=== PATIENT | female | born 1985 | race Hispanic/Latino ===

== ENCOUNTER 2017-10-06 17:23 | Emergency (ER) | payer OTHER ==
[~2017-10-06] VITALS: Ht 162.6 cm; Wt 113.0 kg
[~2017-10-06 17:23] MED LIST: AMOXICILLIN500 MG PO; BACTRIM DS1 TAB OR; DIFLUCAN150 MG OR; ERRIN0.35 MG PO; GLYBURIDE2.5 MG PO; GLYBURIDE5 MG PO; HUMULIN R1 M1 SC; KARIVA28 DAY; LISINOPRIL10 MG PO; LORTAB5 PO; METFORMIN500 M1 PO; METFORMIN500 MG PO; MIRCETTE28 DAY PO; NOVOLOG SC; NOVOLOG100 IU/1 M; NOVOLOG100 IU/1 M SC; PENICILLN VK500 MG PO; PRENATAL1 TA1 PO; TRAMADOL HCL50 MG PO; ULTRAM50 M1 PO; ZOFRAN ODT8 MG PO
[2017-10-06] MEDS ORDERED: MOTRIN800 MG PO (20:25)
[2017-10-06] MEDS ORDERED: FLEXERIL PO (20:25)
[2017-10-06] MEDS ORDERED: LEVEMIR FL100 UNIT/M SC (20:34)
[2017-10-06 20:44] VITALS: BP 148/89
== END 2017-10-06 20:44 | disposition home or self-care (01) | DRG 563 ==
LOC: ED 17:23
DX: S29.012A Strain of muscle and tendon of back wall of thorax, initial encounter (principal); V59.49XA Driver of pick-up truck or van injured in collision with other motor vehicles in traffic accident, initial encounter; Y92.414 Local residential or business street as the place of occurrence of the external cause

== ENCOUNTER 2018-02-05 19:03 | Emergency (ER) | payer OTHER ==
[~2018-02-05] VITALS: Ht 162.6 cm; Wt 111.4 kg
[~2018-02-05 19:03] MED LIST changes: +FLEXERIL PO; +LEVEMIR FL100 UNIT/M SC; +MOTRIN800 MG PO
[2018-02-05 20:05] LABS: IMMATURE GRANULOCYTES 1.2 % (0.0-1.0); MEAN CELL VOLUME 83.3 fL CALC (80.0-100.0); MEAN CORPUSCULAR HGB 26.4 pG CALC (26.0-32.0); MEAN CORPUSCULAR HGB CONC 31.6 g/L CALC (32.0-36.0); NEUT# 12.6 thou/uL (2.00-7.15); RED BLOOD COUNT 5.46 mill/uL (4.20-5.60); RED CELL DISTRI WIDTH 13.2 % (11.5-15.5)
[2018-02-05 20:09] LABS: HEMATOCRIT 45.5 % (37.0-47.0); HEMOGLOBIN 14.4 g/dl (12.0-16.0)
[2018-02-05 20:16] LABS: ALKALINE PHOSPHATASE 102 u/l (38-126); AMYLASE 31 u/l (30-110); ANION GAP 21 (6-22 (CALC)); BILIRUBIN, TOTAL 0.7 mg/dL (0.0-1.4); BUN 13 mg/dL (7-17); BUN/CREATININE RATIO 18 (12-20 (CALC)); CARBON DIOXIDE 26 mmol/l (22-30); CHLORIDE 95 mmol/l (95-108); CREATININE 0.7 mg/dL (0.5-1.0); GFR > 60 ML/MIN (>=60 (CALC)); GFR FOR AFR.AMER. > 60 ML/MIN (>=60 (CALC)); LIPASE 49 u/l (23-300); POTASSIUM 4.6 mmol/l (3.5-5.1); SGOT/AST 44 u/l (14-36); SGPT/ALT 31 u/l (9-52); SODIUM 137 mmol/l (137-146); TOTAL PROTEIN 7.7 g/dL (6.3-8.2)
[2018-02-06] MEDS ORDERED: CIPROFLOXACN500 MG PO (01:21)
[2018-02-06 01:27] VITALS: BP 118/67
== END 2018-02-06 01:41 | disposition home or self-care (01) | DRG 392 ==
LOC: ED 19:03
PROVIDERS: Emergency Medicine
DX: R11.10 Vomiting, unspecified (principal); E11.65 Type 2 diabetes mellitus with hyperglycemia; Z79.4 Long term (current) use of insulin; Z79.84 Long term (current) use of oral hypoglycemic drugs; R19.7 Diarrhea, unspecified; R50.9 Fever, unspecified

== ENCOUNTER 2018-06-10 23:43 | Observation (INO) | payer OTHER ==
[~2018-06-10] VITALS: Ht 162.6 cm; Wt 114.0 kg
[~2018-06-10 23:43] MED LIST changes: +CIPROFLOXACN500 MG PO
--- NOTE | 2018-06-11 00:01 | NUR ---
AMBULATED TO ROOM 8
[2018-06-11 00:53] LABS: URINE BILIRUBIN - DIPSTICK NEGATIVE (NEGATIVE); URINE BLOOD DIPSTICK NEGATIVE (NEGATIVE); URINE COLOR YELLOW; URINE GLUCOSE - DIPSTICK NEGATIVE (NEGATIVE); URINE KETONE 15 mg/dL (NEGATIVE); URINE LEUK ESTERASE NEGATIVE (NEGATIVE); URINE NITRITE - DIPSTICK NEGATIVE (Negative); URINE PROTEIN - DIPSTICK 30 mg/dL (NEG-TRACE); URINE SPECIFIC GRAVITY 1.025; URINE UROBILINOGEN - DIPSTICK 0.2 E.U./dL (0.2)
[2018-06-11 00:56] LABS: URINE CLARITY CLEAR
--- NOTE | 2018-06-11 01:00 | NUR ---
ABD SOFT BUT TENDER AROUND THE UMBILICAL AREA.
[2018-06-11 01:02] LABS: HEMATOCRIT 45.2 % (37.0-47.0); HEMOGLOBIN 14.3 g/dl (12.0-16.0); IMMATURE GRANULOCYTES 1.4 % (0.0-1.0); MEAN CELL VOLUME 82.3 fL CALC (80.0-100.0); MEAN CORPUSCULAR HGB CONC 31.6 g/L CALC (32.0-36.0); NEUT# 15.76 thou/uL (2.00-7.15); RED BLOOD COUNT 5.49 mill/uL (4.20-5.60); RED CELL DISTRI WIDTH 15.1 % (11.5-15.5)
[2018-06-11 01:12] LABS: URINE RBC 0-2 RBC/hpf (0-5); URINE WBC 0-2 WBC/hpf (0-5)
[2018-06-11 01:13] LABS: ALKALINE PHOSPHATASE 90 u/l (38-126); AMYLASE 54 u/l (30-110); ANION GAP 16 (6-22 (CALC)); BILIRUBIN, TOTAL 0.5 mg/dL (0.0-1.4); BUN 15 mg/dL (7-17); BUN/CREATININE RATIO 22 (12-20 (CALC)); CARBON DIOXIDE 29 mmol/l (22-30); CHLORIDE 98 mmol/l (95-108); CREATININE 0.7 mg/dL (0.5-1.0); GFR > 60 ML/MIN (>=60 (CALC)); GFR FOR AFR.AMER. > 60 ML/MIN (>=60 (CALC)); LIPASE 45 u/l (23-300); POTASSIUM 4.7 mmol/l (3.5-5.1); SGOT/AST 21 u/l (14-36); SGPT/ALT 24 u/l (9-52); SODIUM 139 mmol/l (137-146); TOTAL PROTEIN 7.9 g/dL (6.3-8.2); URINE BACTERIA RARE hpf; URINE MUCUS FEW hpf (NONE-FEW)
--- NOTE | 2018-06-11 01:22 | NUR ---
TO CT VIA STRETCHER
--- NOTE | 2018-06-11 01:49 | NUR ---
RETURNED FROM CT VIA STRETCHER. IV RE-CONNECTED. PAIN BETTER 06/06.
--- NOTE | 2018-06-11 02:59 | NUR ---
LAB AT BEDSIDE FOR LACTIC DRAW
--- NOTE | 2018-06-11 03:43 | NUR ---
PHARM WAS CALLED TO GET ZOSYN PROFILED. STILL NOT...SO REENTERED BY THEM AND JAYNA WILL RETRIEVE FROM OUTPT
[2018-06-11] MEDS ORDERED: TRESIBA FL100 UNIT/M SC (04:07)
[2018-06-11] MEDS ORDERED: HUMALOG100 UNIT/M SC (04:08)
[2018-06-11] MEDS ORDERED: VICTOZA18 MG/3 ML SC (04:09)
[2018-06-11] MEDS ORDERED: SPRINTEC 2828 DAY PO (04:11)
--- NOTE | 2018-06-11 04:51 | NUR ---
UNABLE TO TAKE PT UPSTAIRS FLOOR CALLED A STROKE ALERT.
--- NOTE | 2018-06-11 06:11 | NUR ---
REPORT TO ANTON ASTORGA/M.S. PT SLEEPING.
--- NOTE | 2018-06-11 06:18 | NUR ---
PT TO FLOOR VIA STRETCHER. NAD. VSS. PWD. RESP EASY REG.
[2018-06-11 06:30] VITALS: BP 137/76
--- NOTE | 2018-06-11 06:31 | NUR ---
PATIENT ARRIVED TO MED/SURG AT 0615.
--- NOTE | 2018-06-11 08:30 | NUR ---
PT RESTING IN BED. IVF INFUSING AT PRESCRIBED RATE. PT DENIES ANY NAUSEA OR PAIN AT THIS TIME. PT STATES WHEN SHE STANDS UP NO PAIN BUT SORENESS TO ABD. ASSESSMENT COMPLETED. PT NPO AT THIS TIME. POC DISCUSSED. PT VERBALIZES UNDERSTANDING. WILL CONTINUE TO MONITOR. CALL LIGHT IN REACH.
[2018-06-11 09:18] LABS: HEMATOCRIT 38.1 % (37.0-47.0); HEMOGLOBIN 12.2 g/dl (12.0-16.0); IMMATURE GRANULOCYTES 1.1 % (0.0-1.0); MEAN CELL VOLUME 82.5 fL CALC (80.0-100.0); MEAN CORPUSCULAR HGB 26.4 pG CALC (26.0-32.0); NEUT# 8.53 thou/uL (2.00-7.15); RED BLOOD COUNT 4.62 mill/uL (4.20-5.60); RED CELL DISTRI WIDTH 15.3 % (11.5-15.5)
--- NOTE | 2018-06-11 13:40 | NUR ---
PT PREVIOUSLY MEDICATED WITH TYLENOL FOR PAIN. PT DESCRIBES PAIN FEELING "SORE AFTER DOING EXERCISE". DR GOMEZ NOTIFIED. TORADOL 30MG X1 DOSE TO BE GIVEN. PT VERBALIZES UNDERSTANDING. PT SITTING UP ON SIDE OF BED. FAMILY AT BEDSIDE. WILL CONTINUE TO MONITOR. CALL LIGHT IN REACH.
--- NOTE | 2018-06-11 16:00 | NUR ---
PT RESTING IN BED WITH EYES CLOSED. IVF INFUSING AT PRESCRIBED RATE. WILL CONTINUE TO MONITOR. CALL LIGHT IN REACH.
[2018-06-11 16:39] VITALS: BP 124/79
[2018-06-11 19:28] VITALS: BP 143/72
--- NOTE | 2018-06-11 20:00 | NUR ---
BEDSIDE REPORT RECEIVED FROM MENDEL KAUR. PT SITTING UP IN BED WATCHING TV; ALERT AND ORIENTED. C/O ABDOMINAL PAIN WITH MOVEMENT; STATES THAT TORADOL WAS EFFECTIVE EARLIER. RESPIRATIONS EVEN AND UNLABORED ON ROOM AIR. PLAN OF CARE DISCUSSED. PT ENCOURAGED TO VERBALIZE CONCERNS. STATES UNDERSTANDING. SAFETY MEASURES IN PLACE. CALL LIGHT WITHIN REACH.
--- NOTE | 2018-06-12 | NUR ---
PT ASLEEP AT THIS TIME WITH NO SIGNS OF DISTRESS; AWAKENS TO VERBAL STIMULI. RESPIRATIONS EVEN AND UNLABORED ON ROOM AIR. IV FLUIDS INFUSING WITHOUT DIFFICULTY; IV SITE APPEARS HEALTHY. NO REQUESTS OR CONCERNS AT THIS TIME. SAFETY MEASURES IN PLACE. CALL LIGHT WITHIN REACH.
--- NOTE | 2018-06-12 04:00 | NUR ---
PT ASLEEP WITH NO SIGNS OF DISTRESS NOTED. RESPIRATIONS EVEN AND UNLABORED ON ROOM AIR. NO ACUTE CHANGES IN CONDITION THROUGHOUT THE NIGHT. SAFETY MEASURES IN PLACE. CALL LIGHT WITHIN REACH.
[2018-06-12 04:32] VITALS: BP 117/73
[2018-06-12 04:37] LABS: HEMATOCRIT 34.1 % (37.0-47.0); HEMOGLOBIN 10.6 g/dl (12.0-16.0); IMMATURE GRANULOCYTES 0.8 % (0.0-1.0); MEAN CELL VOLUME 84.2 fL CALC (80.0-100.0); MEAN CORPUSCULAR HGB 26.2 pG CALC (26.0-32.0); MEAN CORPUSCULAR HGB CONC 31.1 g/L CALC (32.0-36.0); NEUT# 4.83 thou/uL (2.00-7.15); RED BLOOD COUNT 4.05 mill/uL (4.20-5.60); RED CELL DISTRI WIDTH 15.1 % (11.5-15.5)
[2018-06-12 04:55] LABS: ANION GAP 9 (6-22 (CALC)); BUN 12 mg/dL (7-17); BUN/CREATININE RATIO 19 (12-20 (CALC)); CARBON DIOXIDE 28 mmol/l (22-30); CHLORIDE 106 mmol/l (95-108); CREATININE 0.7 mg/dL (0.5-1.0); GFR > 60 ML/MIN (>=60 (CALC)); GFR FOR AFR.AMER. > 60 ML/MIN (>=60 (CALC)); POTASSIUM 3.8 mmol/l (3.5-5.1); SODIUM 140 mmol/l (137-146)
--- NOTE | 2018-06-12 07:00 | NUR ---
SHIFT CHANGE REPORT FROM MAGDALENA, MARIYA SLEEPING BUT AWAKENED TO VERBAL STIMULI, ORIENTED, STATED ABD PAIN IS MUCH BETTER THIS AM, IVF INFUSING, CALL MANNING IN REACH.
[2018-06-12 07:50] VITALS: BP 121/75
[2018-06-12 08:47] LABS: CHOLESTEROL HDL RATIO 4.1 (<4.4 (CALC)); MAGNESIUM 1.8 mg/dL (1.6-2.3)
[2018-06-12] MEDS ORDERED: METRONIDAZOL500 MG PO (10:09)
[2018-06-12] MEDS ORDERED: CIPROFLOXACN500 MG PO (10:09)
--- NOTE | 2018-06-12 13:54 | NUR ---
Discharge instructions given. Patient verbalizes understanding of same. Discharged in stable condition via Ambulatory to Home with family. All belongings sent with pt.
== END 2018-06-12 13:25 | disposition home or self-care (01) | DRG 392 ==
LOC: ED 23:43 → ED-I 06-11 02:59 → ED 06-11 03:44 → MS2 06-11 03:45 → ED 06-11 03:52 → ED-I 06-11 03:52 → MS2 06-12 13:25
PROVIDERS: Emergency Medicine; Nurse Practitioner Family; ADMIT Internal Medicine; ATTEND Internal Medicine
DX: K52.9 Noninfective gastroenteritis and colitis, unspecified (principal); E11.65 Type 2 diabetes mellitus with hyperglycemia; I10 Essential (primary) hypertension; E66.01 Morbid (severe) obesity due to excess calories; Z68.41 Body mass index [BMI] 40.0-44.9, adult; Z79.4 Long term (current) use of insulin
CPT/HCPCS: G0378; Q9967; S0164

== ENCOUNTER 2018-10-04 09:35 | Day surgery (SDC) | payer OTHER ==
[~2018-10-04] VITALS: Ht 162.6 cm; Wt 117.9 kg
[~2018-10-04 09:35] MED LIST changes: +HUMALOG100 UNIT/M SC; +LISINOPRIL20 MG PO; +METRONIDAZOL500 MG PO; +SPRINTEC 2828 DAY PO; +TRESIBA FL100 UNIT/M SC; +VICTOZA18 MG/3 ML SC
[2018-10-04 13:05] VITALS: BP 116/74
== END 2018-10-04 12:55 | disposition home or self-care (01) | DRG 74 ==
LOC: ENDO 09:35 → ORM 09:45 → ENDO 09:45
PROVIDERS: ATTEND Surgery
PROC: 0DJ08ZZ Inspection of Upper Intestinal Tract, Via Natural or Artificial Opening Endoscopic (ICD-10-PCS; principal; 2018-10-04)
DX: E11.43 Type 2 diabetes mellitus with diabetic autonomic (poly)neuropathy (principal); K31.84 Gastroparesis; I10 Essential (primary) hypertension

== ENCOUNTER 2019-07-28 19:58 | Emergency (ER) | payer OTHER ==
[~2019-07-28] VITALS: Ht 162.6 cm; Wt 120.5 kg
[2019-07-28] MEDS ORDERED: PRAVASTATIN20 MG PO (20:36)
[2019-07-28] MEDS ORDERED: INVOKANA300 MG PO (20:37)
[2019-07-28] MEDS ORDERED: LISINOP/HCTZ1 TA2 PO (20:37)
[2019-07-28] MEDS ORDERED: HUMALOG KW100 UNIT/M SC (20:38)
[2019-07-28] MEDS ORDERED: VICTOZA18 MG/3 ML SC (20:41)
[2019-07-28 21:10] LABS: IMMATURE GRANULOCYTES 1.7 % (0.0-5.0); MEAN CELL VOLUME 82.5 fL CALC (80.0-100.0); MEAN CORPUSCULAR HGB 26.6 pG CALC (26.0-32.0); MEAN CORPUSCULAR HGB CONC 32.2 g/L CALC (32.0-36.0); NEUT# 11.01 thou/uL (2.00-7.15); RED BLOOD COUNT 5.38 mill/uL (4.20-5.60); RED CELL DISTRI WIDTH 12.9 % (11.5-15.5)
[2019-07-28 21:18] LABS: HEMATOCRIT 44.4 % (37.0-47.0); HEMOGLOBIN 14.3 g/dl (12.0-16.0)
[2019-07-28 21:32] LABS: ALBUMIN 4.8 g/dL (3.2-5.0); ANION GAP 19 (6-22 (CALC)); BILIRUBIN, TOTAL 0.5 mg/dL (0.0-1.4); BUN 25 mg/dL (7-17); BUN/CREATININE RATIO 28 (12-20 (CALC)); CARBON DIOXIDE 26 mmol/l (22-30); CHLORIDE 96 mmol/l (95-108); CREATININE 0.9 mg/dL (0.5-1.0); GFR > 60 ML/MIN (>=60 (CALC)); GFR FOR AFR.AMER. > 60 ML/MIN (>=60 (CALC)); POTASSIUM 4.2 mmol/l (3.5-5.1); SODIUM 136 mmol/l (137-146); TOTAL PROTEIN 9.3 g/dL (6.3-8.2)
[2019-07-28 21:33] LABS: ALKALINE PHOSPHATASE 170 u/l (38-126); SGOT/AST 37 u/l (14-36)
[2019-07-28 21:44] LABS: MYOGLOBIN 46 ng/mL (0 - 62)
[2019-07-28 22:30] VITALS: BP 121/67
[2019-07-28] MEDS ORDERED: TUSSIONEX1 ML PO (22:35)
[2019-07-28] MEDS ORDERED: DOXYCYCL HYC100 MG PO (22:35)
== END 2019-07-28 23:00 | disposition home or self-care (01) | DRG 203 ==
LOC: ED 19:58
PROVIDERS: Family Medicine
DX: J20.9 Acute bronchitis, unspecified (principal); E11.65 Type 2 diabetes mellitus with hyperglycemia; Z79.84 Long term (current) use of oral hypoglycemic drugs; Z79.4 Long term (current) use of insulin; R50.9 Fever, unspecified; R00.0 Tachycardia, unspecified

== ENCOUNTER 2019-08-31 00:27 | Emergency (ER) | payer OTHER ==
[~2019-08-31] VITALS: Ht 162.6 cm; Wt 100.0 kg
[~2019-08-31 00:27] MED LIST changes: +DOXYCYCL HYC100 MG PO; +HUMALOG KW100 UNIT/M SC; +INVOKANA300 MG PO; +LISINOP/HCTZ1 TA2 PO; +PRAVASTATIN20 MG PO; +TUSSIONEX1 ML PO
[2019-08-31] MEDS ORDERED: MOTRIN800 MG PO (03:03)
[2019-08-31] MEDS ORDERED: AMOXICILLIN500 MG PO (03:03)
[2019-08-31 03:12] VITALS: BP 123/80
== END 2019-08-31 03:12 | disposition home or self-care (01) | DRG 159 ==
LOC: ED 00:27
DX: K02.9 Dental caries, unspecified (principal); E11.9 Type 2 diabetes mellitus without complications; I10 Essential (primary) hypertension; Z79.4 Long term (current) use of insulin

== ENCOUNTER 2020-06-03 08:08 | Inpatient (IN) | payer OTHER, MEDICAID ==
[~2020-06-03] VITALS: Ht 162.6 cm; Wt 114.4 kg
--- NOTE | 2020-06-03 08:08 | NUR ---
PT TO ROOM VIA EMS
[2020-06-03 08:56] LABS: HEMATOCRIT 43.4 % (37.0-47.0); HEMOGLOBIN 13.6 g/dl (12.0-16.0); IMMATURE GRANULOCYTES 1.1 % (0.0-5.0); MEAN CELL VOLUME 84.1 fL CALC (80.0-100.0); MEAN CORPUSCULAR HGB 26.4 pG CALC (26.0-32.0); MEAN CORPUSCULAR HGB CONC 31.3 g/dL CAL (32.0-36.0); NEUT# 5.65 thou/uL (2.00-7.15); RED BLOOD COUNT 5.16 mill/uL (4.20-5.60); RED CELL DISTRI WIDTH 13.1 % (11.5-15.5)
[2020-06-03] MEDS ORDERED: OZEMPIC2 MG/1.5 M IN (09:06)
[2020-06-03] MEDS ORDERED: VITAMIN D50000 UNIT PO (09:07)
[2020-06-03] MEDS ORDERED: ALBUTEROL108 MCG/AC IN (09:07)
[2020-06-03 09:19] LABS: ALBUMIN 4.1 g/dL (3.2-5.0); ALKALINE PHOSPHATASE 109 u/l (38-126); ANION GAP 16 (6-22 (CALC)); BILIRUBIN, TOTAL 0.7 mg/dL (0.0-1.4); BUN 14 mg/dL (7-17); BUN/CREATININE RATIO 20 (12-20 (CALC)); CARBON DIOXIDE 25 mmol/l (22-30); CHLORIDE 94 mmol/l (95-108); CREATININE 0.7 mg/dL (0.5-1.0); GFR > 60 ML/MIN (>=60 (CALC)); GFR FOR AFR.AMER. > 60 ML/MIN (>=60 (CALC)); POTASSIUM 3.9 mmol/l (3.5-5.1); SGOT/AST 43 u/l (14-36); SODIUM 130 mmol/l (137-146); TOTAL PROTEIN 7.5 g/dL (6.3-8.2)
[2020-06-03 09:28] LABS: MYOGLOBIN 18 ng/mL (0 - 62)
[2020-06-03 09:31] LABS: C-REACTIVE PROTEIN 18.2 mg/dL (0-0.9)
--- NOTE | 2020-06-03 10:00 | NUR ---
RECIEVED REPORT FROM GOOD WALTON.
--- NOTE | 2020-06-03 11:00 | NUR ---
PT RESTING ON STRETCHER WITH CALL LIGHT WITHIN REACH. ANTIBIOTICS AND FLUIDS CONTINUE TO BE INFUSING INTO PATENT IV. PT NOTIFIED OF PENDING ADMISSION AND SHE VERBAIZED UNDERSTANDING
--- NOTE | 2020-06-03 11:52 | NUR ---
ATTEMPTED TO GIVE REPORT, VINYL DIPPER STATES THAT NURSE IS BUSY AND SHE WILL NOTIFY HER SOON SHE SEES HER. CHARGE NURSE NOTIFIED.
--- NOTE | 2020-06-03 11:58 | NUR ---
RECEIVED REPORT FROM MATEUS WALTON IN ER
--- NOTE | 2020-06-03 12:00 | NUR ---
GAVE REPORT TO CONNIE
--- NOTE | 2020-06-03 12:25 | NUR ---
PT TRANSPORTED TO [facility] SURG STABLE AND IN NO DISTRESS BY STRETCHER FOLLOWING ISOLATION PROTOCOL FOR PT AND MYSELF. CARE ASSUMED TO CONNIE. Admission Note Report Given to: Transported by: Wheelchair X Stretcher Transported with: X Nurse Transporter X Patent IV X O2 X Systematic Theology Professor Location: ICU X MS2
--- NOTE | 2020-06-03 12:27 | NUR ---
PT ARRIVED FROM ER VIA STRETCHER ACCOMPANIED BY STAFF
--- NOTE | 2020-06-03 12:50 | NUR ---
ASSESSMENT IS COMPLETED : IV SITE IS FREE FROM REDNESS OR EDEMA. HR IS REG,PULSES ARE STRONG. X4, ABD IS SOFT WITH ACTIVE BS. BREATH SOUNDS ARE CLEAR AND DIMINISHED. O2@ 2 LITERS WITH NC. CONTINUE TO OSEBRVE AND MONITOR.
[2020-06-03 12:59] VITALS: BP 122/70
[2020-06-03 14:59] VITALS: BP 103/41
--- NOTE | 2020-06-03 15:47 | NUR ---
MOTHER CALLED AND INQUIRED ABOUT WHY HER DAUGHTER WAS NOT IN ICU. EXPLAINED THAT HER DAUGHTER IS ON OXYGEN AND ALSO ALL MEDICATIONS ARE BEING GIVEN TO TREAT HER. HER SATS ARE 96-98% WHICH IS PERFECT SHE IS NOT IN ANY DISTRESS. MOTHER EXPLAINED THAT SHE IS ALSO COVID POSITIVE. AND TAKING CARE OF HER GRANDKIDS.
--- NOTE | 2020-06-03 15:51 | NUR ---
WENT IO INFORM PT OF HER MOTHER'S CALL, PT IS RESTING WITH EYES CLOSED. NO DISTRESS NOTED.
--- NOTE | 2020-06-03 16:16 | NUR ---
SISTER CALLED AND INSISTED THAT SHE GET TRANSFERRED TO ICU. EXPLAIEND THAT SHE IS STABLE. AND THE DR IS NOT IN HOUSE WILL INFORM THE DR. SHE WILL CALL LATER TODAY AND OR TOMORROW . " AGAIN INSIST THAT SHE IS SENT TO ICU".
--- NOTE | 2020-06-03 16:38 | NUR ---
PT WAS UPSET. EXPLAINED THAT HER OXYGEN LEVEL IS GOOD AT 2LITERS OF OXYGEN . HER SATS ARE GOOD. IF SHE HAS A BREATHING ISSUE. THEN IT IS GOING TO BE ADDRESSED. INQUIRED ABOUT BREATHING TX. EXPLAINED PER CDC NOT WARRANT BREATHING TX BUT AN INHALER. INFORMED PT THAT HER SISTER AND MOTHER DID CALL. AND WANTS HER MOVED TO ICU. EXPLAINED THAT IF THE O2 GETS TOO LOW AND NEEDS MORE OXYGEN THEN SHE WOULD NEED TO BE MOVED. VERBALIZED UNDERSTANDING.
--- NOTE | 2020-06-03 16:53 | NUR ---
INFORMED DR ORTIZ RE: PT'S FAMILY REQUEST. AND HAVE ALREADY INFORMED THE FAMILY THAT SHE IS STABLE.
--- NOTE | 2020-06-03 17:04 | NUR ---
INFORMED PT OF THE CONVERSATION WITH DR ORTIZ, VERBALIZED UNDERSTANDING.
--- NOTE | 2020-06-03 17:36 | NUR ---
SPOKE TO ANOTHER FAMILY MEMBER . INQUIRED HOW THE PT WAS IF SHE IS STABLE. AND MEDICATIONS THAT SHE IS ON. EXPLAINED AGAIN RE: IF HER OXYGEN LEVEL GOES DOWNTO 88% AND NEED TO HAVE MORE O2 UP TO 5 LITERS THEN SHE WILL NEED TO GO TO ICU. NOW SHE IS STABLE AT 2 LITERS SAT 96-98%
[2020-06-03 19:08] VITALS: BP 127/73
[2020-06-04 04:49] VITALS: BP 133/77
[2020-06-04 05:40] LABS: HEMATOCRIT 42.6 % (37.0-47.0); HEMOGLOBIN 12.8 g/dl (12.0-16.0); IMMATURE GRANULOCYTES 1.9 % (0.0-5.0); MEAN CELL VOLUME 87.3 fL CALC (80.0-100.0); MEAN CORPUSCULAR HGB 26.2 pG CALC (26.0-32.0); NEUT# 4.44 thou/uL (2.00-7.15); RED BLOOD COUNT 4.88 mill/uL (4.20-5.60); RED CELL DISTRI WIDTH 13.1 % (11.5-15.5)
--- NOTE | 2020-06-04 06:26 | NUR ---
PT IN BED WITH EYES CLOSED. NO S/S OF DISTRESS. EASILY AROUSED. MEDICATED WITH TYLENOL AND COUGH SYRUP FOR HEADACHE/COUGH AND HELPFUL. PT UP TO TOILET WITH NO ASSIST NEEDED. AFEBRILE. IV SITE INTACT WITH NO S/S OF INFECTION/INFILTRATION.
[2020-06-04 07:35] VITALS: BP 119/67
--- NOTE | 2020-06-04 07:35 | NUR ---
ASSESSMENT IS COMPLETED: IV SITE IS FREE FROM REDNESS OR EDEMA. HR IS REG,PULSES ARE STRONG X4, ABD IS SOFT WITH ACTIVE BS./ NO DISTRESS NOTED. BREATH SOUNDS ARE CLEAR AND DIMINISHED. O2 ON AND OFF TELE MONITOR IN PLACE. CONTINUE TO OSBERVE AND MONITOR
[2020-06-04 09:11] LABS: CHLORIDE 100 mmol/l (95-108)
[2020-06-04 09:12] LABS: ALBUMIN 3.6 g/dL (3.2-5.0); ALKALINE PHOSPHATASE 94 u/l (38-126); BUN 15 mg/dL (7-17); BUN/CREATININE RATIO 24 (12-20 (CALC)); CARBON DIOXIDE 22 mmol/l (22-30); CREATININE 0.6 mg/dL (0.5-1.0); GFR > 60 ML/MIN (>=60 (CALC)); GFR FOR AFR.AMER. > 60 ML/MIN (>=60 (CALC)); POTASSIUM 4.4 mmol/l (3.5-5.1); SGOT/AST 26 u/l (14-36); SODIUM 134 mmol/l (137-146)
[2020-06-04 09:34] LABS: ANION GAP 16 (6-22 (CALC)); BILIRUBIN, TOTAL 0.4 mg/dL (0.0-1.4); C-REACTIVE PROTEIN 16.1 mg/dL (0-0.9)
--- NOTE | 2020-06-04 10:25 | NUR ---
SPOKE WITH HER MOTHER RE: STATUS REPORT. PT IS DOING WELL. EXPLAINED RE: CDC DOES NOT RECOMMEND THE BREATHING TREATMENTS INQUIRED ABOUT THE COUGH. EXPLAINED SHE HAS COUGH SYRUP ORDERED WILL CHECK ON THE NEXT DOSE . VERBALIZED UNDERSTANDING.
[2020-06-04 11:30] VITALS: BP 108/61
--- NOTE | 2020-06-04 12:09 | NUR ---
PT CONTINUES ON HER MENSTRUAL CYCLE.
--- NOTE | 2020-06-04 12:15 | NUR ---
PT HAS BEEN AMBULATING IN THE ROOM. NO DISTRESS NOTED. IV SITE IS FREE FROM REDNESS OR EDEMA.
[2020-06-04 14:14] LABS: URINE BILIRUBIN - DIPSTICK NEGATIVE (NEGATIVE); URINE BLOOD DIPSTICK LARGE (NEGATIVE); URINE COLOR YELLOW; URINE GLUCOSE - DIPSTICK >=1000 mg/dL (NEGATIVE); URINE KETONE 40 mg/dL (NEGATIVE); URINE LEUK ESTERASE NEGATIVE (NEGATIVE); URINE NITRITE - DIPSTICK NEGATIVE (Negative); URINE PH 6.5 (4.5-8.0); URINE PROTEIN - DIPSTICK NEGATIVE (NEG-TRACE); URINE UROBILINOGEN - DIPSTICK 0.2 E.U./dL (0.2)
[2020-06-04 14:24] LABS: URINE RBC 25-50 RBC/hpf (0-5)
--- NOTE | 2020-06-04 16:00 | NUR ---
PT HAS BEEN HAVING O2 ON AND OFF. NO DISTRESS NOTED. IV SITE IS FREE FROM REDNESS OR EDEMA.
[2020-06-04 16:18] VITALS: BP 124/67
[2020-06-04 19:10] VITALS: BP 121/73
--- NOTE | 2020-06-04 20:10 | NUR ---
PT. SITTING UP IN BED NOTED WITH A COUGH AND PRN INHALOR GIVEN, WILL MEDICATE SHORTLY WITH ROBITUSSIN. ASSESSMENT COMPLETED. O2 INFUSING PER NC PER ORDER. REPORTS BM EARLIER IN DAY. INSTRUCTED TO CALL FOR ANY NEEDS. CALL LIGHT IS IN REACH.
[2020-06-04 23:36] VITALS: BP 137/70
--- NOTE | 2020-06-04 23:36 | NUR ---
PT. IN BED WITH NO DISTRESS NOTED; HEAD DOFFER IN AT BEDSIDE OBTAINING VS. VSS. ENCOURAGED TO CALL FOR ANY NEEDS.
--- NOTE | 2020-06-05 02:17 | NUR ---
PT. C/O COUGH AND LEBRON; MEDICATED WITH ORDERED PRN TYLENOL,INHALOR AND ROBITUSSIN; WILL REASSESS.
[2020-06-05 03:36] VITALS: BP 142/83
--- NOTE | 2020-06-05 04:56 | NUR ---
PT. RESTING IN BED ON LEFT SIDE WITH EYES CLOSED; NO DISTRESS NOTED; WILL CONTINUE TO MONITOR. CALL LIGHT IS IN REACH.
[2020-06-05 08:15] VITALS: BP 131/73
--- NOTE | 2020-06-05 08:15 | NUR ---
ASSESSMENT IS COMPLETED: IV SITE IS FREE FROM REDNESS OR EDEMA. HR IS REG,PULSES ARE STRONG X4, ABD IS SOFT WITH ACTIVE BS. BREATH SOUNDS ARE CLEAR, AND DIMINISHED. TELE MONITOR IN PLACE. CONTINEU TO OSBERVE AND MONITOR.
[2020-06-05 11:05] VITALS: BP 117/62
--- NOTE | 2020-06-05 12:15 | NUR ---
PT IS RELAXING IN BED WITH NO DISTRESS NOTED. IV SITE IS FREE FROM REDNESS OR EDEMA. CONTINUE TO OBSERVE AND MONITOR.
[2020-06-05 14:50] VITALS: BP 133/76
--- NOTE | 2020-06-05 16:15 | NUR ---
PT IS RELAXING IN BED WITH NO DISTRESS NOTED. IV SITE IS FREE FROM REDNESS OR EDEMA. CONTINUE TO OSBERVE AND MONITOR.
[2020-06-05 19:20] VITALS: BP 147/86
--- NOTE | 2020-06-05 21:20 | NUR ---
ENTERED ROOM TO CHECK ON PT DUE TO FAMILY CONCERNS PER PHONE CALL TO FIELD TRAINER. PT APPEARS CALM, A LITTLE TEARY, BUT NOT IN DISTRESS. I TALKED W/THE PT AND ASSESSED HER AT THIS TIME. PT DENIES PAIN, ONLY MILD DISCOMFORT FROM R.CHEST TO R.SHOULDER WHEN SHE COUGHS. SHE DID ASK FOR COUGH SYRUP WHEN HER MEDICATIONS ARE BROUGHT. NO EDEMA NOTED, REPORTS BM AND DENIES DIFFICULTIES URINATING. DENIES SOB OR DIFFICULTY BREATHING. I TALKED WITH PT FOR COMFORT AND DISCUSSED OUR POC AND MEDICATION SCHEDULE, SNACK, LIGHTS, BED, TV. I INFORMED HER THAT HER FAMILY HAD CALLED TO ASK ME TO CHECK ON HER, THAT THEY WERE CONCERNED. SHE APPEARED TO BE CALM WHEN I LEFT THE ROOM, SAYING THANK YOU AND DENYING ANY NEEDS AT THIS TIME. I ASSURED THE PT THAT I WOULD BE RETURNING W/MEDICATIONS ORDERED AND IF SHE NEEDED ANYTHING AT ALL TO LET US KNOW VIA CALL LIGHT AND I WOULD BRING IT WHEN I COME, BUT DO NOT HESITATE TO LET US KNOW OR TO CALL IF ANY OTHER DIFFICULTIES OR SYMPTOMS ARISE. SHE VERBALIZED UNDERSTANDING.
--- NOTE | 2020-06-05 21:45 | NUR ---
CALLED PTS MOTHER AT HOME PER PT'S APPROVAL. REASSURED THE MOTHER THAT THE PT WAS NOT IN DISTRESS AND DISCUSSED CARE SCHEDULE WITH HER AT THIS TIME. ANSWERING HER QUESTIONS TO THE BEST OF MY ABILITY. SHE THANKED ME FOR CALLING, STATED THAT HER DAUGHTER/PATIENT HAD TEXTED HER THAT I HAD BEEN IN AND THAT SHE WAS OKAY. I ENCOURAGED HER TO CALL ANYTIME THROUGHOUT THE NIGHT TO CHECK ON HER AND ASSURED HER THAT IT WAS NOT A PROBLEM. SHE VERBALIZED APPRECIATION AND UNDERSTANDING AT THIS TIME.
--- NOTE | 2020-06-05 22:59 | NUR ---
PT MEDICATED ORDERS PROVIDE. LUNG SOUNDS ARE DIM/WHEEZING THROUGHOUT. PT C/O MILD PRESSURE TO UPPER R.CHEST RADIATING TO SHOULDER AND ELBOW WHEN SHE COUGHS. TALKED W/PT FOR AWHILE FOR COMFORT. DENIES ANY OTHER NEEDS, BUT ENCOURAGED PT TO CALL ANY NEEDS ARISE. SHE EXPRESSED UNDERSTANDING AT THIS TIME. LEFT W/LIGHTS OUT, TV ON AND CALL LIGHT IN HAND.
[2020-06-05 23:15] VITALS: BP 136/76
[2020-06-06 03:20] VITALS: BP 143/84
--- NOTE | 2020-06-06 04:30 | NUR ---
BLOOD DRAWN FOR LABS AT THIS TIME, PT TOLERATED WELL. PT IS COUGHING WHILE I WAS IN THE ROOM. PT ASKED FOR ALBUTEROL, PROVIDED AT THIS TIME. DENIES ANY OTHER NEEDS. CALL LIGHT W/IN REACH.
[2020-06-06 06:06] LABS: IMMATURE GRANULOCYTES 5.3 % (0.0-5.0); MEAN CELL VOLUME 83.8 fL CALC (80.0-100.0); MEAN CORPUSCULAR HGB 26.1 pG CALC (26.0-32.0); MEAN CORPUSCULAR HGB CONC 31.1 g/dL CAL (32.0-36.0); NEUT# 7.26 thou/uL (2.00-7.15); RED BLOOD COUNT 4.14 mill/uL (4.20-5.60); RED CELL DISTRI WIDTH 13.2 % (11.5-15.5)
[2020-06-06 06:10] LABS: HEMATOCRIT 34.7 % (37.0-47.0); HEMOGLOBIN 10.8 g/dl (12.0-16.0)
[2020-06-06 06:29] LABS: ALBUMIN 3.3 g/dL (3.2-5.0); ALKALINE PHOSPHATASE 82 u/l (38-126); ANION GAP 10 (6-22 (CALC)); BUN 14 mg/dL (7-17); BUN/CREATININE RATIO 24 (12-20 (CALC)); C-REACTIVE PROTEIN 2.9 mg/dL (0-0.9); CARBON DIOXIDE 24 mmol/l (22-30); CHLORIDE 103 mmol/l (95-108); CREATININE 0.6 mg/dL (0.5-1.0); GFR > 60 ML/MIN (>=60 (CALC)); GFR FOR AFR.AMER. > 60 ML/MIN (>=60 (CALC)); POTASSIUM 4.1 mmol/l (3.5-5.1); SGOT/AST 25 u/l (14-36); SODIUM 133 mmol/l (137-146); TOTAL PROTEIN 6.1 g/dL (6.3-8.2)
[2020-06-06 06:41] LABS: BILIRUBIN, TOTAL 0.2 mg/dL (0.0-1.4)
--- NOTE | 2020-06-06 08:40 | NUR ---
RECIEVED REPORT FROM ANTON COLBY. PT RESTING IN SEMI FOWLERS POSITION UPON ENTERING ROOM. INTRODUCED SELF TO PT AND DISCUSSED POC. ASSESSMENT AND VITALS COMPLETED AT THIS TIME. BP 140/67, HR 75, O2 98% ON 1.5L O2. RESPIRATIONS ARE SHALLOW. LUNG SOUNDS ARE CLEAR BUT DIMINISHED. PT DENIES ANY SOB AT THIS TIME. HEART RHYTHM IS NORMAL. RADIAL AND PEDAL PULSES ARE STRONG WITH NORMAL CAPILLARY REFILL. SKIN IS COOL AND DRY WITH NO EDEMA OR BREAKDOWN. IV FLUSHED, SITE APPEARS HEALTHY AND PATENT. PT DENIES ANY PAIN OR DISCOMFORTS AT THIS TIME. ALL SAFTYE PRECAUTIONS IN PLACE WITH CALL LIGHT IN REACH. WILL COTNINUE TO MONITOR
[2020-06-06 08:52] VITALS: BP 140/67
[2020-06-06 11:00] VITALS: BP 144/85
--- NOTE | 2020-06-06 11:24 | NUR ---
PT REQUESTED ARI R/T MICHELLE "MAKING HER NAUSOUS". RESPIRATIONS ARE SHALLOW, PT DENEIS ANY SOB, PT CURRENTLY ON ROOM AIR, SATTING 93%. ALL SAFTEY PRECAUTIONS IN PLACE WITH CALL LIGHT IN REACH. WILL CONTINUE TO MONITOR
--- NOTE | 2020-06-06 11:50 | NUR ---
DR. ORTIZ AT BEDSIDE DISCUSSING POC
--- NOTE | 2020-06-06 15:30 | NUR ---
PT RESTING IN SEMI FOWLERS POSITION WATCHING TV. RESPIRATIONS ARE EVEN AND UNLABORED WITH NO SIGNS OF DISTRESS. PT DENIES ANY PAIN OR DISCOMFORTS AT THIS TIME. ALL SAFTEY PRECAUTIONS IN PLACE WITH CALL LIGTH IN REACH. WILL CONTINUE TO MONITOR
[2020-06-06 16:00] VITALS: BP 156/84
[2020-06-06 20:19] VITALS: BP 156/84
--- NOTE | 2020-06-06 21:30 | NUR ---
PT RESTING IN BED,ALERT AND ORIENTED. RESPIRATIONS EVEN AND UNLABORED ON RA. LUNG SOUND DIMINISHED. PEDAL PULSES ARE STRONG. PT DENIES ANY PAIN OR DISCOMFORT AT THIS TIME. PT PROVIDED WITH ICE WATER AT THIS TIME PER PT REQUEST. SAFETY PRECAUTIONS IN PLACE. WILL CONTINUE TO MONITOR.
[2020-06-07] VITALS (7 sets, daily range): BP systolic 113–180; BP diastolic 62–83
--- NOTE | 2020-06-07 00:15 | NUR ---
PT RESTING IN BED, NO S/S OF DISTRESS AT THIS TIME. SAFETY PRECAUTIONS IN PLACE. WILL CONTINUE TO MONITOR.
--- NOTE | 2020-06-07 04:14 | NUR ---
PT RESTING IN BED, NO S/S OF DISTRESS AT THIS TIME. SAFETY PRECAUTIONS IN PLACE. WILL CONTINUE TO MONITOR.
--- NOTE | 2020-06-07 08:14 | NUR ---
RECIEVED REPORT FROM ANTON MARLEY. PT RESTING IN SEMI FOWLERS POSITION WATCHING TV WHEN ENTERING ROOM.PT IS A/O X3. INTRODUCED SELF TO PT AND DISCUSSED POC. ASSSESSMENT AND VITALS COMPLETED AT THIS TIME. BP 143/81, HR 68, O2 96% ON ROOM AIR. RESPIRATIONS ARE EVEN AND UNLABORED WITH NO SIGNS OF DISTRESS. LUNG SOUNDS ARE DIMINISHED, PT COMPLAINS OF SOB ONLY WHEN COUGHING. PT PRESENT WITH NON PRODUCIVE COUGH, ROBITUSSIN TO BE ADMINISTERED.HEART RHYTHM IS NORMAL, TELE IN PLACE. BOWEL SOUNDS ARE ACTIVE IN ALL QUADRANTS WITH NO TENDERNESS, LAST REPORTED BM 06/06/20.#20 RFA FLUSHED, SITE APPEARS HEALTHY AND PATENT. PT DENIES ANY PAIN OR DISCOMFORTS AT THIS TIME. ALL SAFETY AND ISOLATION PRECAUTIONS IN PLACE WITH CALL LIGTH IN REACH.WILL CONTINUE TO MONITOR
--- NOTE | 2020-06-07 11:45 | NUR ---
PT RESTING IN SEMI FOWLERS POSITION WATCHING TV. RESPIRATIONS ARE EVEN AND UNLABORED WITH NO SIGNS OF DISTRESS. PT DENIES OF ANY PAIN OR DISCOMFORTS AT THIS TIME. ALL SAFTEY AND ISOLATION PRECATUIONS IN PLACE WITH CALL LIGHT IN REACH. WILL CONTINUE TO MONITOR
--- NOTE | 2020-06-07 12:00 | NUR ---
POONAM HODGE AT BEDSIDE DISCUSSSING POC WITH PT.
--- NOTE | 2020-06-07 16:00 | NUR ---
PT RESTING ON SOFA IN ROOM. RESPIRATIONS ARE EVEN AND UNLABORED WITH NO SIGNS OF DISTRESS. PT COMPLAINS OF UPSET STOMACH, PT REQUEST SOME CRACKERS AND WILMER VASYL. ALL SAFETY AND ISOLATION PRECAUTIONS IN PLACE WITH CALL LIGHT IN REACH. WILL CONTINUE TO MONITOR
--- NOTE | 2020-06-07 21:50 | NUR ---
PT RESTING IN BED, ALERT AND ORIENTED. RESPIRATIONS EVEN AND UNLABORED ON RA. LUNGS SOUND CLEAR/DIMINISHED. PEDAL PULSES ARE STRONG. PT DENIES ANY PAIN AT THIS TIME, HOWEVER DOES COMPLAIN OF SWELLING IN HER HANDS AND FEET, TRACE AMOUNT OF EDEMA NOTED BILATERALLY TO THE LOWER EXTREMITIES. TELE IN PLACE. #20 RFA, PATENT AND APPEARS HEALTHY, PT EDUCATED ON IV EXPIRATION, PT AGREED TO HAVE A NEW IV PLACE, UNABLE TO OBTAIN NEW IV SITE AT THIS TIME. PT PROVIDED WITH ICE WATER PER REQUEST. SAFETY PRECAUTIONS IN PLACE. WILL CONTINUE TO MONITOR.
--- NOTE | 2020-06-07 22:42 | NUR ---
RETURNED PT FAMILY MEMBERS PHONE CALL ACCESS CODE OBTAINED AND UPDATE GIVEN.
--- NOTE | 2020-06-08 00:52 | NUR ---
PT RESTING IN BED. RESPIRATIONS EVEN AND UNLABOED ON RA. TELE IN PLACE. CALL MANNING WITHIN REACH. WILL CONTINUE TO MONITOR.
[2020-06-08 04:36] VITALS: BP 148/79
--- NOTE | 2020-06-08 04:36 | NUR ---
PT RESTING IN BED. RESPIRATIONS EVEN AND UNLABROED ON RA. NO S/S OF DISTRESS AT THIS TIME. LABS DRAWN AND VS OBTAINED. SAFETY PRECAUTIONS IN PLACE. WILL CONTINUE TO MONITOR.
[2020-06-08 06:17] LABS: HEMATOCRIT 36.3 % (37.0-47.0); HEMOGLOBIN 11.4 g/dl (12.0-16.0); MEAN CELL VOLUME 83.8 fL CALC (80.0-100.0); MEAN CORPUSCULAR HGB 26.3 pG CALC (26.0-32.0); MEAN CORPUSCULAR HGB CONC 31.4 g/dL CAL (32.0-36.0); RED BLOOD COUNT 4.33 mill/uL (4.20-5.60)
[2020-06-08 06:41] LABS: ALBUMIN 3.4 g/dL (3.2-5.0); ALKALINE PHOSPHATASE 81 u/l (38-126); ANION GAP 9 (6-22 (CALC)); BILIRUBIN, TOTAL 0.2 mg/dL (0.0-1.4); BUN 16 mg/dL (7-17); BUN/CREATININE RATIO 22 (12-20 (CALC)); C-REACTIVE PROTEIN 2.1 mg/dL (0-0.9); CARBON DIOXIDE 26 mmol/l (22-30); CHLORIDE 103 mmol/l (95-108); CREATININE 0.7 mg/dL (0.5-1.0); GFR > 60 ML/MIN (>=60 (CALC)); GFR FOR AFR.AMER. > 60 ML/MIN (>=60 (CALC)); POTASSIUM 3.9 mmol/l (3.5-5.1); SGOT/AST 26 u/l (14-36); SODIUM 134 mmol/l (137-146); TOTAL PROTEIN 6.3 g/dL (6.3-8.2)
[2020-06-08 07:25] LABS: IMMATURE GRANULOCYTES 10.8 % (0.0-5.0); MANUAL DIFFERENTIAL YES; PLATELET COUNT 433 thou/uL (130-400)
[2020-06-08 07:26] LABS: PLATELET ESTIMATE NORMAL
[2020-06-08 10:29] VITALS: BP 155/94
--- NOTE | 2020-06-08 11:40 | NUR ---
PT SITTING UP IN BED WITH EYES OPEN. MEDICATED FOR HEADACHE AND NAUSEA. ABLE TO VERFBALIZE NEEDS. A/O X 4. AMBULATES TO TOILET AND GAIT/BALANCE IS STEADY. NOO RSPIRATORY DISTRESS NOTED. LUNG SOUNDS ARE DIMINISHED. RESIDENT CONTINUES ON ROOM AIR. CONTINUES ON IV ABT WITH NO SIDE EFFECTS NOTED. CALL LIGHT IS WITHIN REACH. WILL CONTINUE TO OBSERVE.
[2020-06-08] MEDS ORDERED: AMLODIPINE BESYL5 MG PO (14:36)
[2020-06-08] MEDS ORDERED: LISINOPRIL20 M1 PO (14:36)
[2020-06-08] MEDS ORDERED: DECADRON2 MG PO (14:37)
[2020-06-08] MEDS ORDERED: ZITHROMAX500 MG PO (14:38)
[2020-06-08] MEDS ORDERED: KEFLEX500 M1 PO (14:42)
--- NOTE | 2020-06-08 16:08 | NUR ---
PT DISCHARGED HOME. EDUCATED PT ON DISCHARGED MEDICATION, DOSAGE, FRFEQUENCY, DURATION, AND INDICATION. PT STATES SHE UNDERSTANDS. DISCHARGE INSTRUCTION AND PRESCRIPTIONS GIVEN TO PT AT DISCHARGE. ALL PERSONAL BELONGINGS TAKEN WITH PT. IV WAS REMOVED AND PT TOLERATED WELL.
== END 2020-06-08 15:30 | disposition home or self-care (01) | DRG 177 ==
LOC: ED 08:08 → ED-I 10:24 → ED 10:34 → ED-I 10:35 → MS2 10:35
PROVIDERS: Emergency Medicine; Nurse Practitioner Family; ADMIT Internal Medicine; ATTEND Internal Medicine
DX: U07.1 COVID-19 (principal); J12.89 Other viral pneumonia; J96.00 Acute respiratory failure, unspecified whether with hypoxia or hypercapnia; Z68.41 Body mass index [BMI] 40.0-44.9, adult; E11.9 Type 2 diabetes mellitus without complications; I10 Essential (primary) hypertension; E66.01 Morbid (severe) obesity due to excess calories; E78.5 Hyperlipidemia, unspecified; J45.909 Unspecified asthma, uncomplicated; Z79.4 Long term (current) use of insulin
CPT/HCPCS: J1650; Q9967

== ENCOUNTER 2022-09-19 20:45 | Emergency (ER) | payer OTHER, MEDICAID ==
[~2022-09-19] VITALS: Ht 162.6 cm; Wt 122.0 kg
[~2022-09-19 20:45] MED LIST changes: +ALBUTEROL108 MCG/AC IN; +AMLODIPINE BESYL5 MG PO; +DECADRON2 MG PO; +KEFLEX500 M1 PO; +LISINOPRIL20 M1 PO; +OZEMPIC2 MG/1.5 M IN; +VITAMIN D50000 UNIT PO; +ZITHROMAX500 MG PO
[2022-09-19 20:59] VITALS: BP 139/77
[2022-09-19 21:15] VITALS: BP 130/75
[2022-09-19] MEDS ORDERED: LISINOPRIL10 MG PO (21:16)
[2022-09-19] MEDS ORDERED: TRESIBA100 UNIT/M (21:17)
[2022-09-19] MEDS ORDERED: VALTREX1 GM PO (21:43)
[2022-09-19] MEDS ORDERED: PREDNISONE20 MG PO (21:43)
[2022-09-19 22:16] VITALS: BP 130/75
== END 2022-09-19 22:15 | disposition home or self-care (01) | DRG 74 ==
LOC: ED 20:45
DX: G51.0 Bell's palsy (principal)

== ENCOUNTER 2024-06-03 12:29 | Emergency (ER) | payer OTHER ==
[~2024-06-03] VITALS: Ht 162.6 cm; Wt 118.0 kg
[~2024-06-03 12:29] MED LIST changes: +PREDNISONE20 MG PO; +TRESIBA100 UNIT/M; +VALTREX1 GM PO
[2024-06-03 12:41] VITALS: BP 160/89
[2024-06-03 12:46] VITALS: BP 160/81
[2024-06-03 13:01] VITALS: BP 125/72
[2024-06-03] MEDS ORDERED: oxyCODONE 10MG/APAP 325 MG 1 COMBO TAB PO ONE (13:45)
[2024-06-03] MEDS ORDERED: DEXAMETHASONE SOD. PHOSPHATE 10 MG/ML VIAL IM ONE (13:45)
[2024-06-03 14:28] LABS: BASO% 0.6 % (0-3); EOS% 0.1 % (0-8); HEMATOCRIT 41.4 % (37.0-47.0); LYMPH% 16.1 % (15-41); MEAN CORPUSCULAR HGB CONC 32.6 g/dL CAL (32.0-36.0); MONO% 3.9 % (2-13); NEUT# 10.55 thou/uL (2.00-7.15); NEUT% 78.3 % (42-76); RED BLOOD COUNT 4.5 mill/uL (4.20-5.60); RED CELL DISTRI WIDTH 12.5 % (11.5-15.5)
[2024-06-03 14:30] LABS: HEMOGLOBIN 13.5 g/dl (12.0-16.0)
[2024-06-03] MEDS ORDERED: KETOROLAC TROMETHAMINE 30 MG/ML SDV IM ONE (16:45)
[2024-06-03] MEDS ORDERED: PREDNISONE20 MG PO (16:52)
[2024-06-03 17:11] VITALS: BP 125/72
== END 2024-06-03 17:15 | disposition home or self-care (01) | DRG 552 ==
LOC: ED 12:29
PROVIDERS: Family Medicine
DX: M51.16 Intervertebral disc disorders with radiculopathy, lumbar region (principal); M48.061 Spinal stenosis, lumbar region without neurogenic claudication; I10 Essential (primary) hypertension; E11.9 Type 2 diabetes mellitus without complications; Z79.84 Long term (current) use of oral hypoglycemic drugs; Z79.4 Long term (current) use of insulin